=== PATIENT | female | born 1980 | race Two or more races ===

== ENCOUNTER 2018-02-06 11:41 | Emergency (ER) | payer BC, OTHER ==
[~2018-02-06] VITALS: Ht 157.5 cm; Wt 67.1 kg
[2018-02-06] MEDS ORDERED: IV NS 0.9% 1,000 ML BAG IV ONE (12:30)
[2018-02-06 12:37] LABS: BASOPHILS # (AUTO) 0.1 /CMM (0.0-0.2); BASOPHILS % (AUTO) 1.3 % (0.0-2.0); EOSINOPHILS % (AUTO) 2.2 % (0.0-6.0); HEMATOCRIT 41 % (33-45); HEMOGLOBIN 13.6 g/dL (11.5-14.8); LYMPHOCYTES # (AUTO) 1.3 /CMM (0.8-4.8); LYMPHOCYTES % (AUTO) 21.4 % (20.0-44.0); MEAN CORPUSCULAR HGB CONC 34 g/dl (31.0-36.0); MEAN CORPUSCULAR VOLUME 83 fL (82-100); MONOCYTES # (AUTO) 0.3 /CMM (0.1-1.30); MONOCYTES % (AUTO) 5.6 % (2.0-12.0); NEUTROPHILS # (AUTO) 4.4 /CMM (1.8-8.9); NEUTROPHILS % (AUTO) 69.5 % (43.0-81.0); PLATELET COUNT (AUTO) 415 /CMM (150-450); RDW COEFFICIENT OF VARIATION 13.3 (11.5-15.0); RED BLOOD CELL COUNT(AUTO) 4.91 MIL/uL (4.0-5.2); WHITE BLOOD COUNT (AUTO) 6.2 K/uL (4.3-11.0)
[2018-02-06 12:43] LABS: CALCIUM, SERUM 9.7 mg/dL (8.5-10.1); CREATININE 0.7 mg/dL (0.6-1.3); POTASSIUM 3.8 mmol/L (3.5-5.1)
--- NOTE | 2018-02-06 13:17 | NUR ---
Patient discharged to home in stable condition. Written and verbal after care instructions given. Patient verbalizes understanding of instruction.
[2018-02-06 13:18] VITALS: BP 130/82
--- NOTE | 2018-02-06 13:18 | NUR ---
IV removed. Catheter intact and site benign. Pressure and 4x4 applied to site. No bleeding noted.
== END 2018-02-06 13:19 | disposition home or self-care (01) ==
LOC: ER 11:49
DX: R11.2 Nausea with vomiting, unspecified (principal); E86.0 Dehydration
CPT/HCPCS: 36415; 80048-TC; 84703-TC; 85025-TC; A4606; J7030; Z7610

== ENCOUNTER 2021-05-05 15:51 | Emergency (ER) | payer BC, MEDICAID ==
[~2021-05-05] VITALS: Ht 157.5 cm; Wt 87.1 kg
[2021-05-05] MEDS ORDERED: HYDROCODONE/APAP 5/325MG TABLET PO ONE (16:30)
[2021-05-05] MEDS ORDERED: HYDROCODONE/APAP 5/325MG TABLET ONE (16:34)
--- NOTE | 2021-05-05 16:38 | NUR ---
Patient came in to the er c/o left flank pain, on room air, breathing evenly and unlabored. Kept comfortable, will continue to monitor accordingly.
[2021-05-05] MEDS ORDERED: HYDR-4303 PO ×2 (17:14→17:15)
[2021-05-05] MEDS ORDERED: IBUP-1955 PO (17:14)
[2021-05-05] MEDS ORDERED: CYCL5TAB PO (17:15)
[2021-05-05 17:25] VITALS: BP 132/73
--- NOTE | 2021-05-05 17:26 | NUR ---
Patient discharged to home in stable condition. Written and verbal after care instructions given. Patient verbalizes understanding of instruction.
== END 2021-05-05 17:26 | disposition home or self-care (01) ==
LOC: ER 15:51
DX: S29.011A Strain of muscle and tendon of front wall of thorax, initial encounter (principal); Z79.899 Other long term (current) drug therapy; X50.0XXA Overexertion from strenuous movement or load, initial encounter; Y93.89 Activity, other specified; Y92.89 Other specified places as the place of occurrence of the external cause; Y99.8 Other external cause status
CPT/HCPCS: 71100-TC

== ENCOUNTER 2022-11-03 09:36 | Emergency (ER) | payer MEDICAID ==
[~2022-11-03] VITALS: Ht 157.5 cm; Wt 75.7 kg
[~2022-11-03 09:36] MED LIST: CYCL5TAB PO; HYDR-4303 PO; IBUP-1955 PO
[2022-11-03 09:51] VITALS: BP 112/72
--- NOTE | 2022-11-03 09:51 | NUR ---
BIB FAMILY C/O LEFT SHOULDER PAIN AFTER "TAKING OFF MY JACKET YESTERDAY." PAIN 4/10 ON PAIN SCALE.
[2022-11-03] MEDS ORDERED: IBUP-1957 PO (10:02)
--- NOTE | 2022-11-03 10:18 | NUR ---
Patient discharged to home in stable condition. Written and verbal after care instructions given. Patient verbalizes understanding of instruction.
== END 2022-11-03 10:18 | disposition home or self-care (01) ==
LOC: ER 09:42
DX: S46.912A Strain of unspecified muscle, fascia and tendon at shoulder and upper arm level, left arm, initial encounter (principal); Z98.890 Other specified postprocedural states; Z79.899 Other long term (current) drug therapy; X58.XXXA Exposure to other specified factors, initial encounter; Y93.89 Activity, other specified; Y92.89 Other specified places as the place of occurrence of the external cause; Y99.8 Other external cause status

== ENCOUNTER 2023-02-10 10:40 | Emergency (ER) | payer MEDICAID ==
[~2023-02-10] VITALS: Ht 157.5 cm; Wt 76.2 kg
[~2023-02-10 10:40] MED LIST changes: +IBUP-1957 PO
[2023-02-10] MEDS ORDERED: ONDANSETRON HCL/PF 4 MG/2 ML VIAL IVP ONE (11:00)
--- NOTE | 2023-02-10 11:23 | NUR ---
IV ACCESS PLACED ON R AC #20G. BLOOD DRAWN, SENT TO THE LAB.
--- NOTE | 2023-02-10 11:23 | NUR ---
URINE SPECIMEN COLLECTED AND SENT TO THE LAB.
[2023-02-10] MEDS ORDERED: ONDANSETRON HCL/PF 4 MG/2 ML VIAL ONE (11:25)
[2023-02-10] MEDS: IV NS 0.9% 1,000 ML BAG IV ONE ×2 (11:29→11:30)
[2023-02-10 11:34] LABS: BASOPHILS # (AUTO) 0.1 K/uL (0.0-0.2); BASOPHILS % (AUTO) 0.8 % (0.0-2.0); EOSINOPHILS % (AUTO) 0.8 % (0.0-6.0); HEMATOCRIT 37 % (33-45); HEMOGLOBIN 12.2 g/dL (11.5-14.8); LYMPHOCYTES # (AUTO) 1.6 K/uL (0.8-4.8); LYMPHOCYTES % (AUTO) 20.4 % (20.0-44.0); MEAN CORPUSCULAR HGB CONC 33 g/dl (31.0-36.0); MEAN CORPUSCULAR VOLUME 80 fL (82-100); MONOCYTES # (AUTO) 0.5 K/uL (0.1-1.30); MONOCYTES % (AUTO) 6.1 % (2.0-12.0); NEUTROPHILS # (AUTO) 5.6 K/uL (1.8-8.9); NEUTROPHILS % (AUTO) 71.9 % (43.0-81.0); PLATELET COUNT (AUTO) 392 K/uL (150-450); RED BLOOD CELL COUNT(AUTO) 4.69 MIL/uL (4.0-5.2); WHITE BLOOD COUNT (AUTO) 7.8 K/uL (4.3-11.0)
[2023-02-10 11:49] LABS: BILIRUBIN,URINE NEGATIVE (NEGATIVE); COLOR,URINE YELLOW (YELLOW); LEUKOCYTE ESTERASE ,URINE NEGATIVE (NEGATIVE); NITRITE, URINE NEGATIVE (NEGATIVE); PROTEIN,URINE NEGATIVE (NEGATIVE); UGLUCOSE NEGATIVE (NEGATIVE); UROBILINOGEN,URINE 0.2 EU/dL (0.2)
[2023-02-10 11:54] LABS: CALCIUM, SERUM 9.4 mg/dL (8.5-10.1); CREATININE 0.8 mg/dL (0.6-1.3); POTASSIUM 3.7 mmol/L (3.5-5.1)
[2023-02-10 11:59] LABS: ALBUMIN 3.8 g/dL (3.4-5.0); BILIRUBIN,DIRECT 0.1 mg/dL (0.0-0.2); BILIRUBIN,TOTAL 0.3 mg/dL (0.2-1.0); TOTAL PROTEIN, SERUM 7.6 g/dL (6.4-8.2)
[2023-02-10] MEDS ORDERED: CIPR-262 PO (13:33)
[2023-02-10] MEDS ORDERED: ONDA4TAB5 PO (13:33)
--- NOTE | 2023-02-10 13:57 | NUR ---
Patient discharged to home in stable condition. Written and verbal after care instructions given. Patient verbalizes understanding of instruction.
[2023-02-10 14:10] VITALS: BP 111/65
== END 2023-02-10 14:11 | disposition home or self-care (01) ==
LOC: ER 10:42
DX: K80.20 Calculus of gallbladder without cholecystitis without obstruction (principal); K52.9 Noninfective gastroenteritis and colitis, unspecified; R11.2 Nausea with vomiting, unspecified
CPT/HCPCS: 99285; 74176; 96374; 76705; 96361; 85025; 80048; 83690; 80076; 84703; 81003; 36415; J2405; J7030

== ENCOUNTER 2024-03-13 11:29 | Emergency (ER) | payer MEDICAID, OTHER ==
[~2024-03-13] VITALS: Ht 157.5 cm; Wt 71.2 kg
[~2024-03-13 11:29] MED LIST changes: +CIPR-262 PO; +ONDA4TAB5 PO
[2024-03-13] MEDS ORDERED: ACETAMINOPHEN ES 500 MG TABLET ONE (11:50)
[2024-03-13] MEDS: ACETAMINOPHEN 325 MG TABLET PO ONE (11:50)
[2024-03-13] MEDS ORDERED: IBUP-1953 PO (12:39)
[2024-03-13 12:48] VITALS: BP 128/60; TEMP 98.7; O2SAT 100
== END 2024-03-13 12:49 | disposition home or self-care (01) ==
LOC: ER 11:29
DX: S80.01XA Contusion of right knee, initial encounter (principal); W01.0XXA Fall on same level from slipping, tripping and stumbling without subsequent striking against object, initial encounter; Y93.89 Activity, other specified; Y92.511 Restaurant or cafe as the place of occurrence of the external cause; Y99.8 Other external cause status
CPT/HCPCS: 73564-TC; 73590-TC

== ENCOUNTER 2024-11-17 18:49 | Emergency (ER) | payer OTHER ==
[~2024-11-17] VITALS: Ht 157.5 cm; Wt 65.8 kg
[~2024-11-17 18:49] MED LIST changes: +IBUP-1953 PO
[2024-11-17 19:34] LABS: BASOPHILS # (AUTO) 0.1 K/uL (0.0-0.2); BASOPHILS % (AUTO) 0.9 % (0.0-2.0); EOSINOPHILS # (AUTO) 0.4 K/uL (0.0-0.7); EOSINOPHILS % (AUTO) 3.7 % (0.0-6.0); HEMATOCRIT 32 % (33-45); HEMOGLOBIN 10.5 g/dL (11.5-14.8); LYMPHOCYTES # (AUTO) 2.6 K/uL (0.8-4.8); MEAN CORPUSCULAR HEMOGLOBIN 24 PG (26.0-33.0); MEAN CORPUSCULAR HGB CONC 33 g/dl (31.0-36.0); MEAN CORPUSCULAR VOLUME 75 fL (82-100); MONOCYTES # (AUTO) 0.5 K/uL (0.1-1.30); MONOCYTES % (AUTO) 4.6 % (2.0-12.0); NEUTROPHILS # (AUTO) 7.2 K/uL (1.8-8.9); NEUTROPHILS % (AUTO) 66.8 % (43.0-81.0); PLATELET COUNT (AUTO) 384 K/uL (150-450); RED CELL DISTRIBUTION WIDTH 18.5 % (11.5-15.0); WHITE BLOOD COUNT (AUTO) 10.8 K/uL (4.3-11.0)
[2024-11-17 19:46] LABS: CALCIUM, SERUM 9.6 mg/dL (8.5-10.1); CARBON DIOXIDE 27 mmol/L (21-32); CHLORIDE 105 mmol/L (98-107); CREATININE 0.8 mg/dL (0.6-1.3); GLUCOSE 82 mg/dL (74-106); POTASSIUM 3.8 mmol/L (3.5-5.1); SODIUM SERUM 141 mmol/L (136-145); UREA NITROGEN, BLOOD 13 mg/dL (7-18)
[2024-11-17 19:52] LABS: ALANINE AMINOTRANSFERASE 22 U/L (12-78); ALBUMIN 4.2 g/dL (3.4-5.0); ALKALINE PHOSPHATASE 82 U/L (46-116); ASPARTATE AMINOTRANSFERASE 13 U/L (15-37); BILIRUBIN,DIRECT 0.1 mg/dL (0.0-0.2); BILIRUBIN,TOTAL 0.2 mg/dL (0.2-1.0); LIPASE 43 U/L (16-77); TOTAL PROTEIN, SERUM 8.1 g/dL (6.4-8.2)
[2024-11-17 20:53] VITALS: BP 132/71; TEMP 98.7; O2SAT 97
[2024-11-17 21:07] LABS: ANISOCYTOSIS 1+; BAND % (MANUAL) 0 % (0.0-5.0); BASOPHILS % (MANUAL) 0 % (0.0-2.0); EOSINOPHILS % (MANUAL) 1 % (0-4); LYMPHOCYTES % (MANUAL) 26 % (16-48); MONOCYTES % (MANUAL) 3 % (0-11.0); NEUTROPHILS % (MANUAL) 70 (42-76); PLATELET ESTIMATE ADEQUATE
== END 2024-11-17 20:53 | disposition home or self-care (01) ==
LOC: ER 19:05
DX: R10.13 Epigastric pain (principal); R07.89 Other chest pain; K59.00 Constipation, unspecified; Z79.1 Long term (current) use of non-steroidal anti-inflammatories (NSAID)
CPT/HCPCS: 36415; 71045-TC; 80048-TC; 80076-TC; 83690-TC; 84484-TC; 85025-TC